=== PATIENT | female | born 1995 | race Asian ===

== ENCOUNTER 2019-02-11 23:04 | Emergency (ER) | payer MEDICAID ==
[~2019-02-11] VITALS: Ht 162.6 cm; Wt 54.0 kg
[2019-02-11] MEDS ORDERED: ONDANSETRON HCL 4MG/2ML INJ IV STA (23:19)
[2019-02-11] MEDS ORDERED: SODIUM CHLORIDE 0.9% 1,000 ML IV ONE (23:19)
[2019-02-11] MEDS ORDERED: LEVETIRACETAM 500MG PREMIX 100 ML IV ONE (23:30)
[2019-02-12 00:13] LABS: HEMATOCRIT. 32.5 % (36.0-48.0); HEMOGLOBIN. 10.5 g/dL (12.0-16.0); MEAN CORPUSCULAR HEMOGLOBIN 20.7 pg (28.0-32.0); MEAN CORPUSCULAR VOLUME 64.5 fL (81.0-99.0); MEAN PLATELET VOLUME 7.8 fl (7.4-10.4); PLATELET 295 x1000/uL (130-400); RED BLOOD CELL COUNT 5.05 mill/uL (4.2-5.4); RED CELL DISTRIBUTION WIDTH 14.3 % (11.6-14.6)
[2019-02-12 00:18] LABS: CHLORIDE 108 mEq/L (98-107)
[2019-02-12 01:48] LABS: PLATELET ESTIMATE NORMAL
[2019-02-12 02:10] VITALS: BP 104/62
== END 2019-02-12 02:14 | disposition home or self-care (01) ==
LOC: ER 23:04
DX: R56.9 Unspecified convulsions (principal); R51 Headache; F12.10 Cannabis abuse, uncomplicated; D64.9 Anemia, unspecified; Z98.890 Other specified postprocedural states
CPT/HCPCS: 36415; 70450; 80053; 81025; 85025; 93005; 96365; 96375; 99284; J1953; J2405; J7030